=== PATIENT | female | born 1975 | race Two or more races ===

== ENCOUNTER 2017-06-26 07:43 | Outpatient (CLI) | payer OTHER | END 2017-06-26 07:48 | disposition home or self-care (01) | LOC: NUCLEAR 07:43 | DX: C46.0 Kaposi's sarcoma of skin (principal) | CPT/HCPCS: 78815; A9552 ==

== ENCOUNTER 2018-01-24 10:02 | Outpatient (CLI) | payer OTHER | END 2018-01-24 10:11 | disposition home or self-care (01) | LOC: RAD 10:02 | DX: C46.0 Kaposi's sarcoma of skin (principal); R05 Cough; B20 Human immunodeficiency virus [HIV] disease ==